=== PATIENT | male | born 1955 | race Caucasian/White ===

== ENCOUNTER 2019-02-10 08:02 | Emergency (ER) | payer BC ==
[2019-02-10] MEDS ORDERED: Diphtheria,Pertussis(Acell),Tetanus Vaccine 0.5 ML SDV IM ONE (08:35)
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
== END 2019-02-10 09:35 | disposition home or self-care (01) ==
LOC: FB.ED 08:02
DX: S60.212A Contusion of left wrist, initial encounter (principal); Z23 Encounter for immunization; Z90.49 Acquired absence of other specified parts of digestive tract; V40.5XXA Car driver injured in collision with pedestrian or animal in traffic accident, initial encounter
CPT/HCPCS: 73110-LT; 90471; 90715; 99282-25

== ENCOUNTER 2021-12-02 09:14 | Emergency (ER) | payer BC, MEDICARE ==
[2021-12-02] MEDS ORDERED: methylPREDNISolone Sodium Succinate 125 MG/2 ML SDV IM ONE (09:34)
[2021-12-02] MEDS ORDERED: Albuterol/Ipratropium 3.0-0.5 MG/3 ML Neb Soln NEB ONE (09:40)
[2021-12-02] MEDS ORDERED: Iopamidol 755 Mg/ML 75 ML Bottle IV ONE (11:14)
== END 2021-12-02 13:15 | disposition home or self-care (01) ==
LOC: FB.ED 09:14
DX: J45.901 Unspecified asthma with (acute) exacerbation (principal); R09.1 Pleurisy; E78.00 Pure hypercholesterolemia, unspecified
CPT/HCPCS: 36415; 71045; 71275; 80053; 83880; 84484; 85025; 85379; 93005; 93010; 94640; 96372; 99283; 99284-25; J2930; J7620; Q9967

== ENCOUNTER 2021-12-16 08:35 | Day surgery (SDC) | payer MEDICARE ==
[~2021-12-16 08:35] MED LIST: Lactated Ringers 1,000 ML IV PRN; Sodium Chloride 0.9% 10 ML Syringe FLUSH PRN
[2021-12-16] MEDS ORDERED: Midazolam 1 MG/ML 2 ML SDV IV ONE (08:36)
[2021-12-16] MEDS ORDERED: Sodium Chloride 0.9% 10 ML Syringe IV ONE (08:36)
[2021-12-16] MEDS ORDERED: fentaNYL 100 MCG/2 ML SDV IV ONE (08:36)
[2021-12-16] MEDS: acetaZOLAMIDE 500 MG Cap.ER PO ONE (10:28)
== END 2021-12-16 11:12 | disposition home or self-care (01) ==
LOC: FB.SDS 08:35
PROVIDERS: ATTEND Ophthalmology
DX: H25.813 Combined forms of age-related cataract, bilateral (principal); H11.042 Peripheral pterygium, stationary, left eye; H04.123 Dry eye syndrome of bilateral lacrimal glands; H52.223 Regular astigmatism, bilateral; H52.03 Hypermetropia, bilateral; H52.202 Unspecified astigmatism, left eye; H11.002 Unspecified pterygium of left eye; E78.00 Pure hypercholesterolemia, unspecified; Z87.891 Personal history of nicotine dependence; Z79.899 Other long term (current) drug therapy; Z88.8 Allergy status to other drugs, medicaments and biological substances; Z98.890 Other specified postprocedural states
CPT/HCPCS: 00142-QZ; A9270-GY; J2250; J3010; J3490

== ENCOUNTER 2021-12-30 07:59 | Day surgery (SDC) | payer MEDICARE ==
[2021-12-30] MEDS ORDERED: Glycopyrrolate 0.2 MG/ML 5 ML MDV IV ONE (08:00)
[2021-12-30] MEDS ORDERED: Lactated Ringers 1,000 ML IV PRN (08:00)
[2021-12-30] MEDS ORDERED: Midazolam 1 MG/ML 2 ML SDV IV ONE (08:00)
[2021-12-30] MEDS ORDERED: Sodium Chloride 0.9% 10 ML Syringe FLUSH PRN (08:00)
[2021-12-30] MEDS ORDERED: acetaZOLAMIDE 500 MG Cap.ER PO ONE (10:30)
== END 2021-12-30 10:40 | disposition home or self-care (01) ==
LOC: FB.SDS 07:59
PROVIDERS: ATTEND Ophthalmology
DX: H25.813 Combined forms of age-related cataract, bilateral (principal); H11.042 Peripheral pterygium, stationary, left eye; H04.123 Dry eye syndrome of bilateral lacrimal glands; H52.223 Regular astigmatism, bilateral; H52.03 Hypermetropia, bilateral; J45.909 Unspecified asthma, uncomplicated; E78.5 Hyperlipidemia, unspecified; Z88.8 Allergy status to other drugs, medicaments and biological substances; Z98.890 Other specified postprocedural states; Z87.891 Personal history of nicotine dependence
CPT/HCPCS: 00142-QZ; A9270-GY; J2250; J3490; V2632

== ENCOUNTER 2023-09-19 18:30 | Emergency (ER) | payer MEDICARE ==
[2023-09-19] MEDS ORDERED: Ketorolac 30 MG/ML SDV IM ONE (19:24)
[2023-09-19] MEDS ORDERED: HYDROmorphone 2 MG/ML SDV IM ONE (20:49)
[2023-09-19] MEDS ORDERED: Acetaminophen 500 MG Tab PO ONE (20:50)
[2023-09-19] MEDS ORDERED: Gabapentin 100 MG Cap PO ONE (20:50)
== END 2023-09-19 21:30 | disposition home or self-care (01) ==
LOC: FB.ED 18:30
DX: M54.16 Radiculopathy, lumbar region (principal); E78.00 Pure hypercholesterolemia, unspecified; Z90.49 Acquired absence of other specified parts of digestive tract; Z79.899 Other long term (current) drug therapy; Z88.8 Allergy status to other drugs, medicaments and biological substances
CPT/HCPCS: 72110; 96372; 99283; A9270; J1170; J1885